=== PATIENT | female | born 2000 | race Caucasian/White ===

== ENCOUNTER 2021-05-08 20:01 | Emergency (ER) | payer OTHER ==
--- NOTE | 2021-05-08 21:41 | ED Physician Documentation ---
PD HPI FEMALE - Stated complaint Stated Complaint: FEMALE /BLEED/ABD PX - Chief complaint Chief Complaint: Abd Pain - History obtained from History obtained from: Patient - History of Present Illness Timing - onset: Enter time (13:30), Today Timing - details: Gradual onset Pain level max: 2 Associated symptoms: Pelvic pain. 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 She says she is approximately 5 weeks by LMP. This is her first . She is not COVID vaccinated. Review of Systems Constitutional: denies: Fever Cardiac: reports: Reviewed and negative Respiratory: reports: Reviewed and negative GI: denies: Abdominal Pain, Nausea, Vomiting : reports: Vaginal bleeding, Now EGA (5 weeks by LMP). denies: Dysuria PD PAST MEDICAL HISTORY - Past Medical History Past Medical History: No - Past Surgical History Past Surgical History: No - Allergies Allergies/Adverse Reactions: Allergies Allergy/AdvReac Type Severity Reaction Status Date / Time No Known Drug Allergies Allergy Verified 05/08/21 20:04 - Living Situation Living Arrangement: reports: At home PD ED PE NORMAL - Vitals Vital signs reviewed: Yes - General General: Alert and oriented X 3, No acute distress, Well developed/nourished - Cardiac Cardiac: RRR, No murmur - Respiratory Respiratory: No respiratory distress, Clear bilaterally - Abdomen Abdomen: Soft, Non tender - Back Back: No CVA TTP Results - Vitals Vitals: Vital Signs - 24 hr 05/08/21 05/09/21 20:04 01:00 Temperature 36.5 C 36.3 C L Heart Rate 78 72 Respiratory 16 15 Rate Blood Pressure 140/88 H 140/84 H O2 Saturation 99 100 Oxygen O2 Source Room air - Labs Labs: Laboratory Tests 05/08/21 05/08/21 05/08/21 21:32 22:48 22:48 WBC 9.2 RBC 4.62 Hgb 14.0 Hct 41.2 MCV 89.2 MCH 30.3 MCHC 34.0 RDW 11.5 L Plt Count 235 MPV 10.4 Neut # (Auto) 5.9 Lymph # (Auto) 2.6 [place] # (Auto) 0.5 Eos # (Auto) 0.1 Baso # (Auto) 0.1 Absolute Nucleated RBC 0.00 Nucleated RBC % 0.0 Sodium 139 Potassium 3.7 Chloride 103 Carbon Dioxide 22 Anion Gap 14.0 H BUN 13 Creatinine 0.6 Estimated GFR (MDRD) 125 Glucose 89 Calcium 9.7 Total Bilirubin 0.8 AST 19 ALT 13 Alkaline Phosphatase 47 Total Protein 8.0 Albumin 4.7 Globulin 3.3 Albumin/Globulin Ratio 1.4 Lipase 46 HCG, Quant Urine Color YELLOW Urine Clarity HAZY Urine pH 5.5 Ur Specific [place] >=1.030 H Urine Protein NEGATIVE Urine Glucose (UA) NEGATIVE Urine Ketones NEGATIVE Urine Occult Blood LARGE H Urine Nitrite NEGATIVE Urine Bilirubin NEGATIVE Urine Urobilinogen 0.2 (NORMAL) Ur Leukocyte Esterase SMALL H Urine RBC 6-10 H Urine WBC 6-10 H Ur Squamous Epith Cells FEW Squamous Urine Bacteria Moderate H Ur Microscopic Review INDICATED Urine Culture Comments INDICATED Blood Type 05/08/21 05/08/21 22:48 22:48 WBC RBC Hgb Hct MCV MCH MCHC RDW Plt Count MPV Neut # (Auto) Lymph # (Auto) [place] # (Auto) Eos # (Auto) Baso # (Auto) Absolute Nucleated RBC Nucleated RBC % Sodium Potassium Chloride Carbon Dioxide Anion Gap BUN Creatinine Estimated GFR (MDRD) Glucose Calcium Total Bilirubin AST ALT Alkaline Phosphatase Total Protein Albumin Globulin Albumin/Globulin Ratio Lipase HCG, Quant 18.10 Urine Color Urine Clarity Urine pH Ur Specific [place] Urine Protein Urine Glucose (UA) Urine Ketones Urine Occult Blood Urine Nitrite Urine Bilirubin Urine Urobilinogen Ur Leukocyte Esterase Urine RBC Urine WBC Ur Squamous Epith Cells Urine Bacteria Ur Microscopic Review Urine Culture Comments Blood Type B NEGATIVE - Rads (name of study) pelvic/TV US first trimester Radiology: Prelim report reviewed, See rad report PD MEDICAL DECISION MAKING - ED course Complexity details: reviewed results, re-evaluated patient, considered differential, d/w patient ED course: quantitative HCG is only 18. US demonstrates no IUP identified and no gestational sac. missed , early remain on differential, and ectopic cannot be ruled out. I reviewed these results with patient and discussed the differential diagnosis. I advised her to return if worse in any way, follow up with telehealth case manager 3-5 days for reevaluation Departure - Departure Disposition: 01 Home, Self Care Clinical Impression: Threatened miscarriage Condition: Good Instructions: ED Miscarriage Poss Follow-Up: Jamal Schumacher DO [Provider Admit Priv/Credential] - Comments: Follow up with telehealth case manager, next available appointment. Discharge Date/Time: 05/09/21 02:02
[2021-05-08 22:05] LABS: BILIRUBIN,URINE NEGATIVE (NEGATIVE); GLUCOSE, URINE (UA) NEGATIVE (NEGATIVE); KETONES,URINE (UA) NEGATIVE (NEGATIVE); LEUKOCYTE ESTERASE, URINE SMALL (NEGATIVE); NITRITE,URINE NEGATIVE (NEGATIVE); OCCULT BLOOD,URINE LARGE (NEGATIVE); PH,URINE 5.5 PH (5.0-7.5); PROTEIN,URINE NEGATIVE (NEGATIVE); UROBILINOGEN,URINE 0.2 (NORMAL) E.U./dL (NORMAL)
[2021-05-08 22:10] LABS: CLARITY,URINE HAZY (CLEAR)
[2021-05-08 22:13] LABS: BACTERIA,URINE Moderate /HPF (None Seen); SQUAMOUS EPITHELIAL CELL,UR FEW Squamous (<= Few)
[2021-05-08 22:51] LABS: BASOPHILS # (AUTO) 0.1 10^3/uL (0.0-0.1); BASOPHILS % (AUTO) 0.8 %; EOSINOPHILS # (AUTO) 0.1 10^3/uL (0.0-0.7); EOSINOPHILS % (AUTO) 1.5 %; HCT - HEMATOCRIT 41.2 % (37.0-47.0); LYMPHOCYTES # (AUTO) 2.6 10^3/uL (1.5-3.5); LYMPHOCYTES % (AUTO) 27.7 %; MEAN CORPUSCULAR HEMOGLOBIN 30.3 pg (27.0-31.0); MEAN CORPUSCULAR VOLUME 89.2 fL (81.0-99.0); MEAN PLATELET VOLUME 10.4 fL (7.9-10.8); MONOCYTES # (AUTO) 0.5 10^3/uL (0.0-1.0); MONOCYTES % (AUTO) 5.5 %; NEUTROPHILS # (AUTO) 5.9 10^3/uL (1.5-6.6); NEUTROPHILS % (AUTO) 64.3 %; PLT - PLATELET COUNT 235 10^3/uL (130-450); RED BLOOD COUNT 4.62 10^6/uL (4.20-5.40); RED CELL DISTRIBUTION WIDTH 11.5 % (12.0-15.0); WHITE BLOOD COUNT 9.2 x10^3/uL (4.8-10.8)
[2021-05-08 23:04] LABS: ALBUMIN 4.7 g/dL (3.2-5.5); ALBUMIN/GLOBULIN RATIO 1.4 (1.0-2.2); BILIRUBIN,TOTAL 0.8 mg/dL (0.2-1.0); CALCIUM 9.7 mg/dL (8.5-10.3); CREATININE 0.6 mg/dL (0.4-1.0); POTASSIUM 3.7 mmol/L (3.5-5.0)
[2021-05-09 01:36] VITALS: BP 140/84
--- NOTE | 2021-05-09 10:19 | Ultrasound Report ---
PROCEDURE: OB First Trimester INDICATIONS: vaginal bleeding in , first trimester OUTSIDE/PRIOR DATING DATA: Last menstrual period (LMP): 04/02/2021. LMP-based estimated date of delivery (JASSON): 01/07/2022. First dating scan (date and location): 05/08/2021. TECHNIQUE: Real-time scanning was performed of the fetus and maternal pelvic organs, with image documentation. T ransvaginal exam was performed. COMPARISON: None. FINDINGS: No intrauterine gestational sac. Measurement variability in dating: +/- 4 weeks by LMP, +/- 7 days by mean sac diameter (use before 6 weeks gestation if crown-rump length not able to be measured), +/- 5 days by crown-rump length (6-12 weeks gestation). Trace fluid in the pelvic cul-de-sac. Uterus is anteverted. Maternal organs: Right ovarian cyst measuring 0.8 x 0.7 x 0.5 cm. No significant peripheral vasculari ty. Left ovary is unremarkable. Small ovarian follicles. Blood flow seen in both ovaries. IMPRESSION: 1. of uncertain location. No intrauterine . No ectopic identified. -Recommend trending beta hCG and possible short-term interval follow-up ultrasound. 2. Possible right corpus luteum. This report is concordant with the overnight preliminary interpretation. Reviewed by: Lucas Hawkins MD on 05/09/2021 9:18 AM ERINN Approved by: Lucas Hawkins MD on 05/09/2021 9:18 AM ERINN Station ID: [id number]
== END 2021-05-09 02:02 | disposition home or self-care (01) ==
LOC: ED 20:01
DX: O20.0 Threatened abortion (principal); Z3A.01 Less than 8 weeks gestation of pregnancy
CPT/HCPCS: 36415; 80053; 81001; 81003; 83690; 84702; 85025; 86900; 86901; 87086; 99283; 99284

== ENCOUNTER 2021-05-12 08:00 | Outpatient (CLI) | payer OTHER ==
[2021-05-12 17:52] LABS: BASOPHILS # (AUTO) 0.1 10^3/uL (0.0-0.1); EOSINOPHILS # (AUTO) 0.2 10^3/uL (0.0-0.7); EOSINOPHILS % (AUTO) 2.5 %; HCT - HEMATOCRIT 41.3 % (37.0-47.0); HGB - HEMOGLOBIN 14.1 g/dL (12.0-16.0); LYMPHOCYTES # (AUTO) 1.8 10^3/uL (1.5-3.5); LYMPHOCYTES % (AUTO) 27.8 %; MEAN CORPUSCULAR HEMOGLOBIN 30.2 pg (27.0-31.0); MEAN CORPUSCULAR HGB CONC 34.1 g/dL (32.0-36.0); MEAN CORPUSCULAR VOLUME 88.4 fL (81.0-99.0); MEAN PLATELET VOLUME 10.7 fL (7.9-10.8); MONOCYTES # (AUTO) 0.4 10^3/uL (0.0-1.0); MONOCYTES % (AUTO) 5.9 %; NEUTROPHILS # (AUTO) 3.9 10^3/uL (1.5-6.6); NEUTROPHILS % (AUTO) 62.6 %; PLT - PLATELET COUNT 271 10^3/uL (130-450); RED BLOOD COUNT 4.67 10^6/uL (4.20-5.40); RED CELL DISTRIBUTION WIDTH 11.6 % (12.0-15.0); WHITE BLOOD COUNT 6.3 x10^3/uL (4.8-10.8)
== END 2021-05-12 23:59 | disposition home or self-care (01) ==
LOC: LAB.N 08:00
PROVIDERS: ATTEND Family Medicine
DX: N93.8 Other specified abnormal uterine and vaginal bleeding (principal)
CPT/HCPCS: 36415; 84702; 85025; 87086